=== PATIENT | female | born 1995 | race Caucasian/White ===

== ENCOUNTER 2021-12-17 16:36 | Observation (INO) ==
[2021-12-17] MEDS ORDERED: Famotidine IV 10 MG/ML 2 ml VIAL (20 mg) IV SLOW PU ONE (17:30)
[2021-12-17 18:02] LABS: ABS Lymphocytes 1.2 10^3/ul (1.0-4.8); ABS Monocytes 0.4 10^3/ul (0-0.8); ABS Neutrophils 3.7 10^3/ul (1.5-7.7); Eosinophil % 0.8 %; Hematocrit 42 % (35-47); Lymphocyte % 22.8 %; Mean Corpuscular HGB Conc 34 g/dL (31-36); Mean Corpuscular Hemoglobin 31 pg (27-31); Mean Corpuscular Volume 91 fL (80-97); Mean Platelet Volume 7.8 fL (7.4-10.4); Platelet Count 246 10^3/uL (150-450); Red Blood Count 4.57 10^6 /uL (3.70-4.87); Red Cell Distribution Width 13 % (10-15); White Blood Count 5.4 10^3/uL (3.5-10.8)
[2021-12-17] MEDS ORDERED: Al Hydrox/Mg Hydrox/Simet LIQ 30 ML UDC PO ONE (18:11)
[2021-12-17 18:30] LABS: Albumin 4.7 g/dL (3.2-5.2); Albumin/Globulin Ratio 1.8 (1-3); C Reactive Protein 1.57 mg/L (<8.01); Calcium 9.8 mg/dL (8.6-10.3); Globulin 2.6 g/dL (2-4); Lipase 36 U/L (11.0-82.0); Potassium 4.2 mmol/L (3.5-5.0); Total Bilirubin 2.2 mg/dL (0.2-1.0); Total Protein 7.3 g/dL (6.4-8.9); eGFR CKD-EPI 98.1 (>60)
[2021-12-17 18:38] LABS: HCG Pregnancy < 0.60 mIU/mL
[2021-12-17] MEDS ORDERED: Morphine 4 MG/ML VIAL (1 ml) IV ONE (20:40)
[2021-12-17] MEDS ORDERED: Lactated Ringers 1000 ml BAG 1,000 ML IV ONE (22:26)
[2021-12-17] MEDS ORDERED: Pantoprazole VIAL 40 MG VIAL IV ONE (23:06)
[2021-12-18] MEDS: Sucralfate 1 gm SUSP 1 GM/10 ML UDC PO SCH ×4 (00:37→16:29)
[2021-12-18 06:24] LABS: ABS Eosinophils 0.1 10^3/ul (0-0.6); ABS Lymphocytes 1.6 10^3/ul (1.0-4.8); ABS Monocytes 0.6 10^3/ul (0-0.8); ABS Neutrophils 2.1 10^3/ul (1.5-7.7); Eosinophil % 1.3 %; Hematocrit 37 % (35-47); Hemoglobin 12.8 g/dL (12.0-16.0); Lymphocyte % 37.2 %; Mean Corpuscular HGB Conc 35 g/dL (31-36); Mean Corpuscular Hemoglobin 31 pg (27-31); Mean Corpuscular Volume 90 fL (80-97); Mean Platelet Volume 8.3 fL (7.4-10.4); Platelet Count 204 10^3/uL (150-450); Red Blood Count 4.09 10^6 /uL (3.70-4.87); Red Cell Distribution Width 13 % (10-15); White Blood Count 4.4 10^3/uL (3.5-10.8)
[2021-12-18 06:28] LABS: INR 1.13 (0.86-1.15)
[2021-12-18 06:45] LABS: Albumin 3.9 g/dL (3.2-5.2); Albumin/Globulin Ratio 1.7 (1-3); Calcium 9.1 mg/dL (8.6-10.3); Globulin 2.3 g/dL (2-4); Potassium 4.1 mmol/L (3.5-5.0); Total Bilirubin 3.3 mg/dL (0.2-1.0); Total Protein 6.2 g/dL (6.4-8.9); eGFR CKD-EPI 100.9 (>60)
[2021-12-18] MEDS: Acetaminophen IV 1 GM/100ML 100 ML IV PRN ×2 (14:28→20:09)
[2021-12-18] MEDS: Morphine 2 MG/ML SYRINGE IV PRN ×2 (16:00→20:09)
[2021-12-18] MEDS: NS 0.9% 1000 ml BAG 1,000 ML IV SCH (16:01)
[2021-12-18] MEDS ORDERED: Ondansetron 4 mg VIAL 2 MG/ML 2 ml VIAL ONE (19:26)
[2021-12-18] MEDS ORDERED: Ondansetron 4 mg VIAL 2 MG/ML 2 ml VIAL IV PRN (19:28)
[2021-12-18] MEDS: Pantoprazole VIAL 40 MG VIAL IV SCH (23:02)
[2021-12-19] MEDS: NS 0.9% 1000 ml BAG 1,000 ML IV SCH (04:44)
[2021-12-19 05:12] LABS: ABS Eosinophils 0.1 10^3/ul (0-0.6); ABS Lymphocytes 1.3 10^3/ul (1.0-4.8); ABS Monocytes 0.4 10^3/ul (0-0.8); ABS Neutrophils 2.9 10^3/ul (1.5-7.7); Eosinophil % 1.1 %; Hematocrit 39 % (35-47); Hemoglobin 12.9 g/dL (12.0-16.0); Lymphocyte % 28.1 %; Mean Corpuscular HGB Conc 33 g/dL (31-36); Mean Corpuscular Hemoglobin 31 pg (27-31); Mean Corpuscular Volume 92 fL (80-97); Mean Platelet Volume 8.5 fL (7.4-10.4); Nucleated Red Blood Cells % 0.3; Platelet Count 205 10^3/uL (150-450); Red Blood Count 4.23 10^6 /uL (3.70-4.87); Red Cell Distribution Width 14 % (10-15); White Blood Count 4.7 10^3/uL (3.5-10.8)
[2021-12-19 05:36] LABS: Albumin 3.9 g/dL (3.2-5.2); Albumin/Globulin Ratio 1.5 (1-3); Calcium 8.9 mg/dL (8.6-10.3); Globulin 2.6 g/dL (2-4); Potassium 4.6 mmol/L (3.5-5.0); Total Bilirubin 2.1 mg/dL (0.2-1.0); Total Protein 6.5 g/dL (6.4-8.9); eGFR CKD-EPI 125.1 (>60)
[2021-12-19] MEDS: D5W 1/2 NS 1000 ml BAG 1,000 ML IV SCH ×2 (05:53→19:04)
[2021-12-19] MEDS: Sucralfate 1 gm SUSP 1 GM/10 ML UDC PO SCH ×3 (07:48→16:13)
[2021-12-19] MEDS: Acetaminophen IV 1 GM/100ML 100 ML IV PRN (07:48)
[2021-12-19] MEDS ORDERED: Buffered Lidocaine 1% SYRIN 1 ml INTRADERM ONE (11:12)
[2021-12-19] MEDS ORDERED: Lactated Ringers 1000 ml BAG 1,000 ML IV SCH (12:00)
[2021-12-19] MEDS ORDERED: Lidocaine 2% PF 10 ML AMP ONE (15:15)
[2021-12-19] MEDS ORDERED: Propofol 10 MG/ML 20 ML BTL ONE (15:15)
[2021-12-19] MEDS ORDERED: Midazolam 2 mg/2 ml VIAL 1 mg/ml 2 ml VIAL (2 mg) ONE (15:15)
[2021-12-19] MEDS ORDERED: fentaNYL 100 mcg/2 ml 50 MCG/ML VIAL ONE (15:15)
[2021-12-19] MEDS ORDERED: Rocuronium 50 mg VIAL 10 mg/ml 5 ml VIAL (50 mg) ONE (15:15)
[2021-12-19] MEDS ORDERED: Indomethacin 50 mg SUPP (NF) PR ONE (15:18)
[2021-12-19] MEDS ORDERED: oxyCODONE/Acetamin 5/325 mg TAB PO PRN (16:39)
[2021-12-19] MEDS ORDERED: fentaNYL 100 mcg/2 ml 50 MCG/ML VIAL IV PRN (16:39)
[2021-12-19] MEDS ORDERED: Prochlorperazine 5 mg/ml 2 ml VIAL (10 mg) IV PRN (16:39)
[2021-12-19] MEDS ORDERED: Naloxone 0.4 mg VIAL 0.4 mg/ml 1 ml VIAL IV PRN (16:39)
[2021-12-19] MEDS ORDERED: HYDROcodone/ACETAMIN 5/325 mg TAB PO PRN (16:39)
[2021-12-19] MEDS ORDERED: Ondansetron 4 mg VIAL 2 MG/ML 2 ml VIAL ONE (16:57)
[2021-12-19] MEDS ORDERED: Metoclopramide 5 MG/ML VIAL (10 mg) ONE (18:26)
[2021-12-19] MEDS: Morphine 2 MG/ML SYRINGE IV PRN (19:03)
[2021-12-19] MEDS: Pantoprazole VIAL 40 MG VIAL IV SCH (23:48)
[2021-12-20 04:25] LABS: ABS Lymphocytes 1.1 10^3/ul (1.0-4.8); ABS Monocytes 0.4 10^3/ul (0-0.8); ABS Neutrophils 3.3 10^3/ul (1.5-7.7); Eosinophil % 0.3 %; Hematocrit 36 % (35-47); Hemoglobin 12.1 g/dL (12.0-16.0); Lymphocyte % 22.2 %; Mean Corpuscular HGB Conc 34 g/dL (31-36); Mean Corpuscular Hemoglobin 31 pg (27-31); Mean Corpuscular Volume 92 fL (80-97); Mean Platelet Volume 8.3 fL (7.4-10.4); Platelet Count 218 10^3/uL (150-450); Red Blood Count 3.88 10^6 /uL (3.70-4.87); Red Cell Distribution Width 13 % (10-15); White Blood Count 4.8 10^3/uL (3.5-10.8)
[2021-12-20] MEDS: D5W 1/2 NS 1000 ml BAG 1,000 ML IV SCH (05:10)
[2021-12-20 05:12] LABS: Albumin 3.6 g/dL (3.2-5.2); Albumin/Globulin Ratio 1.6 (1-3); Calcium 8.6 mg/dL (8.6-10.3); Globulin 2.3 g/dL (2-4); Potassium 4.2 mmol/L (3.5-5.0); Total Protein 5.9 g/dL (6.4-8.9); eGFR CKD-EPI 127.5 (>60)
[2021-12-20] MEDS: Acetaminophen IV 1 GM/100ML 100 ML IV PRN (08:17)
[2021-12-20 11:42] VITALS: BP 100/62
== END 2021-12-20 13:30 | disposition home or self-care (01) ==
LOC: ED 16:36 → SUATTDRO 22:55 → EDHOLD 22:55 → INTOOBSV 22:55 → EDHOLD 23:45 → SSU 23:59
PROVIDERS: ADMIT Internal Medicine; ATTEND Internal Medicine